=== PATIENT | female | born 1960 | race Caucasian/White ===

== ENCOUNTER 2018-07-18 14:35 | Emergency (ER) | payer MEDICARE ==
[~2018-07-18] VITALS: Ht 182.9 cm; Wt 104.5 kg
[2018-07-18] MEDS ORDERED: KETOROLAC TROMETHAMINE 10 MG TABLET PO ONE (15:45)
[2018-07-18] MEDS ORDERED: HYDROCODONE/ACETAMINOPHEN 5-325 MG TABLET PO ONE (16:30)
[2018-07-18 16:31] VITALS: BP 122/89
== END 2018-07-18 16:55 | disposition left against medical advice (07) ==
LOC: EMS 14:35
DX: M19.90 Unspecified osteoarthritis, unspecified site (principal); M25.561 Pain in right knee; I10 Essential (primary) hypertension; Z86.73 Personal history of transient ischemic attack (TIA), and cerebral infarction without residual deficits
CPT/HCPCS: 93971